=== PATIENT | male | born 1955 | race American Indian/Alaskan Native ===

== ENCOUNTER 2020-05-19 07:51 | Day surgery (SDC) | payer MEDICARE, OTHER ==
[~2020-05-19 07:51] MED LIST: LACTATED RINGERS 1,000 ML IV SCH
--- NOTE | 2020-05-19 09:39 | Anesthesia Consultation ---
Anesthesia Consult and Med Hx Date of service: 05/19/20 - Airway Anesthetic Teeth Evaluation: Good (implants upper molars bilaterally), Crowns ROM Head & Neck: Adequate Mental/Hyoid Distance: Adequate Mallampati Class: Class III Intubation Access Assessment: Possibly Difficult - Pulmonary Exam CTA: Yes - Cardiac Exam Cardiac Exam: RRR - Pre-Operative Health Status ASA Pre-Surgery Classification: ASA3 Proposed Anesthetic Plan: General - Pulmonary Hx Smoking: No Hx Respiratory Symptoms: No Hx Sleep Apnea: Yes (compliant with CPAP) - Cardiovascular System Hx Hypertension: Yes Hx Heart Attack/AMI: No Hx Percutaneous Transluminal Coronary Angioplasty (PTCA): No Hx Cardia Arrhythmia: Yes (sinus pauses while sleeping) Hx Pacemaker: No (loop recorded implant) Hx Internal Defibrillator: No - Central Nervous System Hx Seizures: No CVA: No Hx Back Pain: Yes (NECK PAIN) Hx Psychiatric Problems: Yes (PTSD) - Gastrointestinal Hx Gastroesophageal Reflux Disease: Yes (well controlled) - Endocrine Hx End Stage Renal Disease: No Hx Liver Disease: No Hx Non-Insulin Dependent Diabetes: Yes (off medications for several years) Hx Thyroid Disease: No - Other Systems Hx Obesity: Yes (BMI 36) - Additional Comments Anesthesia Medical History Comments: Hx syncopal episodes with negative cardiac workup other than sinus pauses noted while sleeping on even recorder. Last episode 2-3wks ago. Cardiac records reviewed. No hx anesthetic complications.
--- NOTE | 2020-05-19 09:39 | Anesthesia Day of Surgery ---
Anesthesia Day of Surgery - Day of Surgery Patient Examined: Yes Patient H&P Reviewed: Yes Patient is NPO: Yes
[2020-05-19] MEDS ORDERED: MIDAZOLAM 2 MG/2 ML INJ IV NR (10:00)
[2020-05-19] MEDS ORDERED: propofoL 200 MG/20 ML VIAL IV ONE (10:21)
[2020-05-19] MEDS ORDERED: LIDOCAINE MPF (2%) 20 MG/1 ML VIAL 5 ML ONE (10:21)
[2020-05-19] MEDS ORDERED: HYDROmorphone 1 MG/1 ML INJ ONE (10:21)
[2020-05-19] MEDS ORDERED: WATER FOR IRRIG STERILE 1,500 ML BOTTLE IR ONE (10:44)
[2020-05-19] MEDS ORDERED: WATER FOR IRRIG STERILE 2000 ML IR ONE ×2 (10:44)
--- NOTE | 2020-05-19 11:14 | Post Operative Note ---
Date of procedure: 05/19/20 Pre-op diagnosis: hematuria Post-op diagnosis: same Findings: stricture Procedure: cysto rpgs dviu Anesthesia: GETA Surgeon: ELIAS EAST Estimated blood loss: none Pathology: none Specimen disposition: to lab Condition: stable Disposition: PACU
--- NOTE | 2020-05-19 11:15 | Discharge Summary ---
Short Stay Discharge Plan Activity: avoid flexion, other (no strainig) Weight Bearing Status: Full Weight Bearing Diet: low fat, low cholesterol, low salt Special Instructions: other (inc fluids) Durable Medical Equipment Needed Upon Discharge: other (cath care ) Follow up with: EMERSON PAGAN MD [Primary Care Provider] - 7 Days ELIAS EAST MD [Staff Physician] - 7 Days
[2020-05-19] MEDS ORDERED: ONDANSETRON 4 MG/2 ML INJ ONE (11:16)
--- NOTE | 2020-05-19 11:25 | Operative Report ---
PREOPERATIVE DIAGNOSIS: Hematuria. POSTOPERATIVE DIAGNOSIS: Post-radiation urethral stricture. PROCEDURE: Cystoscopy, DVIU, retrograde. SURGEON: Dr. Carolina. ANESTHESIA: General. FINDINGS: This is a gentleman with history of urethral trauma and tearing post-radiation. He now presents for cystoscopy. DESCRIPTION OF PROCEDURE: The patient was brought to the operating room and placed on the operating table. Following induction of anesthesia, placed in lithotomy position, prepped and draped in the usual sterile fashion. Cystourethroscopy showed a narrowed urethra. We went and placed a wire in the bladder under fluoroscopic guidance. A DVIU was done without difficulty. It was very inflamed in that area. There were no masses. A retrograde showed slight medial deviation of the ureters with good filling and good drainage, no intraureteral or renal filling defects, good drainage. A 22 [place] coil in the bladder was well visualized with 30 and 70-degree lenses, was brought to recovery in stable condition. JOB# [id number] MARY/GUS
[2020-05-19] MEDS: fentaNYL 100 MCG/2 ML INJ IV PRN ×2 (12:00→12:10)
--- NOTE | 2020-05-19 14:37 | Fluoroscopy Report ---
INTRAOPERATIVE FLUOROSCOPY: RETROGRADE URETEROGRAM INDICATION / CLINICAL INFORMATION: HEMATURIA. TECHNIQUE: Intraoperative spot images were obtained during the procedure. FINDINGS: No filling defects are seen in either renal collecting system or ureter on the images obtained. No ma ss lesions or strictures are seen. Fluoroscopy Time: 25 seconds. Fluoroscopy Images: 5. Signer Name: Arnoldo Braxton MD Signed: 05/19/2020 2:32 PM Workstation Name: [id number]
--- NOTE | 2020-05-19 14:54 | Post Anesthesia Evaluation ---
- Post Anesthesia Evaluation Patient Participated: Yes Airway Patent: Yes Stable Respiratory Function: Yes Nausea/Vomiting: No Temp > 96.8F: Yes Pain Manageable: Yes Adequeate Hydration: Yes Anesthesia Complications: No
[2020-05-19] MEDS ORDERED: oxyCODONE /ACETAMINOPHEN 5-325MG TAB PO ONE (15:00)
[2020-05-19 15:18] VITALS: BP 142/85
== END 2020-05-19 07:52 | disposition home or self-care (01) ==
LOC: OR 07:51
PROVIDERS: ATTEND Urology
DX: R31.0 Gross hematuria (principal); N35.919 Unspecified urethral stricture, male, unspecified site; E78.00 Pure hypercholesterolemia, unspecified; I10 Essential (primary) hypertension; K21.9 Gastro-esophageal reflux disease without esophagitis; G47.30 Sleep apnea, unspecified; E66.9 Obesity, unspecified; E11.9 Type 2 diabetes mellitus without complications; M19.90 Unspecified osteoarthritis, unspecified site; Z68.36 Body mass index [BMI] 36.0-36.9, adult; Z88.8 Allergy status to other drugs, medicaments and biological substances; Z79.899 Other long term (current) drug therapy; Z85.46 Personal history of malignant neoplasm of prostate; Z87.442 Personal history of urinary calculi; Z87.440 Personal history of urinary (tract) infections; Z98.890 Other specified postprocedural states
CPT/HCPCS: 52276; 74420; 82962; A4217; C1758; J0690; J1170; J2250; J2405; J2704; J3010; J7120; Q9967